=== PATIENT | male | born 1950 | race Caucasian/White ===

== ENCOUNTER 2019-09-01 13:08 | Inpatient (IN) ==
[2019-09-01] MEDS ORDERED: SODIUM CHLORIDE 0.9% 500 ML IV SCH (14:15)
[2019-09-01 14:26] LABS: Basophils # (auto) 0.05 K/uL (0-0.2); Basophils % (auto) 0.7 %; Eosinophils % (auto) 4.3 %; Hematocrit (blood only) 40.1 % (42-52); Hemoglobin 13.2 g/dL (14.0-18.0); Immature Granulocytes # (auto) 0.02 K/uL (0.00-0.02); Immature Granulocytes % (auto) 0.3 %; Lymphocytes # (auto) 1.62 K/uL (1.2-3.4); Mean Corpuscular Hemoglobin 30.6 pg (25-34); Mean Corpuscular Hgb Conc 32.9 g/dL (32-36); Mean Corpuscular Volume 92.8 fL (80-100); Mean Platelet Volume 9.7 fL (7.4-10.4); Monocytes # (auto) 0.69 K/uL (0.11-0.59); Monocytes % (auto) 9.8 %; Neutrophils # (auto) 4.35 K/uL (1.4-6.5); Neutrophils % (auto) 61.9 %; Platelet Count 260 K/uL (130-400); RDW Coefficient of Variation 13.5 % (11.5-14.5); RDW Standard Deviation 45.9 fL (36.4-46.3); Red Blood Count 4.32 M/uL (4.7-6.1); White Blood Count 7.03 K/uL (4.8-10.8)
--- NOTE | 2019-09-01 14:28 | Emergency Department Note ---
Impression & Plan Weakness, Pedal edema, Acute deep vein thrombosis (DVT) of right lower extremity ED Provider Note NAME: RAY CHAVES AGE: 68 SEX: M : 1950 ARRIVES VIA: Ambulance INFORMANT: [Patient][nurses, ems] ED PROVIDER(S): [Candido Asif MD] CHIEF COMPLAINT: Lower leg swelling HISTORY OF PRESENT ILLNESS: The patient is a 68-year-old male who was brought by EMS for bilateral pedal edema. The patient had an appointment to see his family doctor for this issue yesterday however, his ride refused to take him as his Torres catheter was leaking. He apparently sat outside for 4 hours before getting back into the house. The patient denies any cough or congestion or shortness of breath. No chest pain. He does have some occasional intermittent abdominal pain but it is very mild in severity. He is moving his bowels. He does not have any urinary complaints, he does wear a chronic Torres. The patient is not sure how long his legs have been swollen. As per the nursing staff, the patient's power of real estate associate attorney wanted him checked today as he has swollen legs. There was also concern that he had been outside in the heat by himself for 4 hours. REVIEW OF SYSTEMS: See HPI for pertinent positives and negatives. A total of ten systems were r eviewed and were otherwise negative. PMHx/PSHx: See Below SOCIAL HISTORY: See Below. PHYSICAL EXAM: GENERAL: Patient is in no acute distress. HEENT: No acute trauma, normocephalic atraumatic, mucous membranes moist, no nasal congestion, no scleral icterus. NECK: No stridor, no adenopathy, no meningismus, trachea is midline. LUNGS: Clear to auscultation bilaterally, no wheeze, no rhonchi, breath sounds equal. HEART: Without murmurs gallops or rubs, regular rate and rhythm. ABDOMEN: Soft, nontender, bowel sounds positive, no hernias, no peritonitis. There is a Torres catheter in place draining yellow urine. EXTREMITIES: No cyanosis, moderate bilateral pedal edema. There are some open wounds on the lower legs below the knees. There is no warmth or surrounding erythema. These appear to be abrasions. NEUROLOGIC: Awake and alert, no acute motor or sensory deficits, no focal weakness. Answers simple questions. No speech slur. SKIN: No rash, no jaundice, no diaphoresis. Groin: There is a Torres in place, no scrotal erythema. DIFFERENTIAL DIAGNOSIS: Infection, dehydration, metabolic abnormality, hypo/hyperglycemia, DVT, cellulitis, UTI, electrolyte disturbance, anemia, hypoxia, cardiac sources, intracerebral event, toxicologic, neurologic, as well as other pathologies. EMERGENCY DEPARTMENT COURSE/PROCEDURES: ECG: Indication was weakness. The ECG shows a normal sinus rhythm with a rate of 71. The QTc is 434. There are no PVCs or ST elevation. LVH is present. Continuous Cardiac Monitoring: An order was placed for continuous cardiac monitoring. The monitor shows a rate of 55 with sinus bradycardia. MEDICAL DECISION MAKING: There is no leukocytosis or concerning anemia. No coagulopathy. No significant electrolyte abnormality or kidney failure. No worrisome liver enzyme elevation. The patient appears to be in a euthyroid state. Urinalysis shows possible infection versus just changes from his chronic Torres catheter. EKG shows a sinus rhythm, no acute ischemia. Cardiac enzyme testing x1 is not consistent with acute cardiac injury. Chest film does not show pneumonia or CHF. KUB does not show obstruction, there was some mild to moderate constipation. Bilateral lower extremity ultrasound shows a right leg DVT and a superficial clot. The left leg did not have any clot. The patient presents with weakness, edema and concern for dehydration. The patient received IV saline for hydration. He is resting comfortably. The patient has been weaker, he has had increasing edema of his legs, he now has a right leg DVT. Given his immobility, given his living situation and care status, I do think a hospital stay is warranted. I did speak to the patient, I spoke with his power of real estate associate attorney. Case management has been involved. The on- call hospitalist was consulted. 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 Beliefs That Will Affect Care: None Current Living Situation: Alone Other Information That Helps Us Care for You: No Feels Safe at Home: Yes Safety Concerns: Feels Safe At This Time Smoking Status: Never smoker Hx Alcohol Use: No Hx Substance Use: No Allergies Allergies Allergy/AdvReac Type Severity Reaction Status Date / Time No Known Allergies Allergy Unverified 09/01/19 13:54 Home Meds Home Medications Medication Instructions Recorded Confirmed amlodipine 2.5 mg PO DAILY 09/01/19 09/01/19 aspirin 81 mg PO DAILY 09/01/19 09/01/19 carbidopa-levodopa 1 tab PO TID 09/01/19 09/01/19 docusate sodium 100 mg PO BID 09/01/19 09/01/19 metformin 500 mg PO DAILY 09/01/19 09/01/19 polyethylene glycol 3350 17 g PO DAILY 09/01/19 09/01/19 tamsulosin 0.4 mg PO DAILY 09/01/19 09/01/19 Results & Data (ED) Vital Signs Vital Signs - 24 hr 09/01/19 13:16 09/01/19 13:18 09/01/19 13:30 Temperature 36.9 C Temperature Source Oral Pulse Rate 78 65 54 L Pulse Rate [Apical] Pulse Rate from SpO2 Sensor 67 66 57 L Respiratory Rate 21 21 19 Respiratory Effort / Characteristics Non-Labored Spontaneous Respiratory Depth Normal Respiratory Pattern Regular Blood Pressure 124/72 114/61 Blood Pressure [Right Arm] Blood Pressure Mean 96 78 Blood Pressure Mean [Right Arm] Pulse Oximetry 97 98 97 Oxygen Delivery Method Room Air Sepsis Recent Fever Within 48 Hours No Sepsis Action Taken by Nursing No Action Required 09/01/19 14:00 09/01/19 14:28 09/01/19 15:54 Temperature Temperature Source Pulse Rate 63 Pulse Rate [Apical] 65 Pulse Rate from SpO2 Sensor 63 Respiratory Rate 16 20 Respiratory Effort / Characteristics Respiratory Depth Respiratory Pattern Blood Pressure Blood Pressure [Right Arm] 144/82 H Blood Pressure Mean Blood Pressure Mean [Right Arm] 102 Pulse Oximetry 97 97 98 Oxygen Delivery Method Room Air Room Air Sepsis Recent Fever Within 48 Hours Sepsis Action Taken by Nursing 09/01/19 16:30 09/01/19 17:00 Temperature Temperature Source Pulse Rate 71 66 Pulse Rate [Apical] Pulse Rate from SpO2 Sensor 71 66 Respiratory Rate 18 20 Respiratory Effort / Characteristics Respiratory Depth Respiratory Pattern Blood Pressure 138/79 137/76 Blood Pressure [Right Arm] Blood Pressure Mean 89 95 Blood Pressure Mean [Right Arm] Pulse Oximetry 97 97 Oxygen Delivery Method Sepsis Recent Fever Within 48 Hours Sepsis Action Taken by [facility] Medications Current Medication List: was personally reviewed by me Laboratory Data Attestation: I reviewed the patient's lab results. Result diagrams: 09/01/19 13:20 09/01/19 13:20 Lab Results 09/01/19 09/01/19 09/01/19 Range/Units 13:20 13:20 13:20 WBC 7.03 (4.8-10.8) K/uL RBC 4.32 L (4.7-6.1) M/uL Hgb 13.2 L (14.0-18.0) g/dL Hct 40.1 L (42-52) % MCV 92.8 (80-100) fL MCH 30.6 (25-34) pg MCHC 32.9 (32-36) g/dL RDW Std Deviation 45.9 (36.4-46.3) fL RDW Coeff of Joni 13.5 (11.5-14.5) % Plt Count 260 (130-400) K/uL MPV 9.7 (7.4-10.4) fL Immature Gran % (Auto) 0.3 % Neut % (Auto) 61.9 % Lymph % (Auto) 23.0 % Burnett % (Auto) 9.8 % Eos % (Auto) 4.3 % Baso % (Auto) 0.7 % Neut # (Auto) 4.35 (1.4-6.5) K/uL Lymph # (Auto) 1.62 (1.2-3.4) K/uL Burnett # (Auto) 0.69 H (0.11-0.59) K/uL Eos # (Auto) 0.30 (0-0.5) K/uL Baso # (Auto) 0.05 (0-0.2) K/uL Immature Gran # (Auto) 0.02 (0.00-0.02) K/uL PT 11.1 (9.0-12.0) Seconds INR 1.1 (0.9-1.1) APTT 26.5 (21.0-31.0) Seconds PTT Ratio 0.9 Sodium 139 (136-145) mmol/L Potassium 4.3 (3.5-5.1) mmol/L Chloride 106 (98-107) mmol/L Carbon Dioxide 27 (21-32) mmol/L Anion Gap 6.0 (3-11) BUN 15 (7-18) mg/dl Creatinine 0.94 (0.6-1.4) mg/dl Est Cr Clr Drug Dosing 77.9 ml/min Est GFR ( Amer) 94.8 Est GFR (Non-Af Amer) 81.8 BUN/Creatinine Ratio 15.6 (10-20) Glucose 137 H (70-99) mg/dl Calcium 8.6 (8.5-10.1) mg/dl Magnesium 2.1 (1.8-2.4) mg/dl Total Bilirubin 0.4 (0.2-1) mg/dl AST 14 L (15-37) U/L ALT 14 (12-78) U/L Alkaline Phosphatase 84 (45-117) U/L Troponin I < 0.015 (0-0.045) ng/ml Total Protein 7.6 (6.4-8.2) gm/dl Albumin 3.3 L (3.4-5.0) gm/dl Globulin 4.3 H (2.5-4.0) gm/dl Albumin/Globulin Ratio 0.8 L (0.9-2) TSH 0.368 (0.300-4.500) uIu/ml Urine Color Urine Appearance (Clear) Urine pH (4.5-7.5) Ur Specific Bradford (1.000-1.030) Urine Protein (Negative) Urine Glucose (UA) (Negative) Urine Ketones (Negative) Urine Blood (Negative) Urine Nitrite (Negative) Urine Bilirubin (Negative) Urine Urobilinogen (Negative) Ur Leukocyte Esterase (Negative) Urine WBC (Auto) (0-5) /hpf Urine RBC (Auto) (0-4) /hpf U Hyaline Cast (Auto) (0-5) /lpf U Epithel Cells (Auto) (0-5) /lpf Urine Bacteria (Auto) (Negative) 09/01/19 Range/Units 15:50 WBC (4.8-10.8) K/uL RBC (4.7-6.1) M/uL Hgb (14.0-18.0) g/dL Hct (42-52) % MCV (80-100) fL MCH (25-34) pg MCHC (32-36) g/dL RDW Std Deviation (36.4-46.3) fL RDW Coeff of Joni (11.5-14.5) % Plt Count (130-400) K/uL MPV (7.4-10.4) fL Immature Gran % (Auto) % Neut % (Auto) % Lymph % (Auto) % Burnett % (Auto) % Eos % (Auto) % Baso % (Auto) % Neut # (Auto) (1.4-6.5) K/uL Lymph # (Auto) (1.2-3.4) K/uL Burnett # (Auto) (0.11-0.59) K/uL Eos # (Auto) (0-0.5) K/uL Baso # (Auto) (0-0.2) K/uL Immature Gran # (Auto) (0.00-0.02) K/uL PT (9.0-12.0) Seconds INR (0.9-1.1) APTT (21.0-31.0) Seconds PTT Ratio Sodium (136-145) mmol/L Potassium (3.5-5.1) mmol/L Chloride (98-107) mmol/L Carbon Dioxide (21-32) mmol/L Anion Gap (3-11) BUN (7-18) mg/dl Creatinine (0.6-1.4) mg/dl Est Cr Clr Drug Dosing ml/min Est GFR ( Amer) Est GFR (Non-Af Amer) BUN/Creatinine Ratio (10-20) Glucose (70-99) mg/dl Calcium (8.5-10.1) mg/dl Magnesium (1.8-2.4) mg/dl Total Bilirubin (0.2-1) mg/dl AST (15-37) U/L ALT (12-78) U/L Alkaline Phosphatase (45-117) U/L Troponin I (0-0.045) ng/ml Total Protein (6.4-8.2) gm/dl Albumin (3.4-5.0) gm/dl Globulin (2.5-4.0) gm/dl Albumin/Globulin Ratio (0.9-2) TSH (0.300-4.500) uIu/ml Urine Color Yellow Urine Appearance Cloudy A (Clear) Urine pH 7.5 (4.5-7.5) Ur Specific Bradford 1.011 (1.000-1.030) Urine Protein Negative (Negative) Urine Glucose (UA) Negative (Negative) Urine Ketones Negative (Negative) Urine Blood Negative (Negative) Urine Nitrite Negative (Negative) Urine Bilirubin Negative (Negative) Urine Urobilinogen Negative (Negative) Ur Leukocyte Esterase 3+ H (Negative) Urine WBC (Auto) >30 H (0-5) /hpf Urine RBC (Auto) 0-4 (0-4) /hpf U Hyaline Cast (Auto) 5-10 H (0-5) /lpf U Epithel Cells (Auto) 5-10 H (0-5) /lpf Urine Bacteria (Auto) 3+ H (Negative) Administered Medications Discontinued Medications Sodium Chloride (Nss) 500 mls @ 999 mls/hr IV .Q31M [facility] Stop: 09/01/19 14:45 Last Infusion: 09/01/19 14:52 Dose: 0 mls/hr Documented by: [id number] Admin: 09/01/19 14:21 Dose: 999 mls/hr Documented by: [id number] Imaging Data Radiologist's Impression: XR chest 1V portable, XR KUB/Abdomen 1 view HISTORY: 68 years-old Male weakness acute weakness COMPARISON: None TECHNIQUE: AP view of the chest with KUB radiograph FINDINGS: CHEST: Enlargement of the cardiac silhouette. Mild right hemidiaphragmatic elevation. No pneumothorax, pleural effusion, airspace consolidation or overt pulmonary edema. Bones of the chest appear grossly intact. Degenerative changes of the shoulders and spine. KUB: Bowel gas pattern is nonobstructive. Mild to moderate fecal retention. No urolith identified. No pneumatosis or pneumoperitoneum. Lumbar levoscoliosis with multilevel degenerative changes. IMPRESSION: 1. No acute processes of the chest. 2. Nonobstructive bowel gas pattern. 3. Mild to moderate fecal retention. ADDENDUM All findings involved the right leg. The left leg is normal. Electronically signed by: Oswaldo Villarreal M.D. 09/01/2019 4:08 PM ADDENDUM END US venous doppler LE BI HISTORY: Pain. Edema. swollen, poss dvt COMPARISON STUDY: None. FINDINGS: Combination of acute deep venous as well as superficial thrombophlebitis. There is evidence for acute deep venous thrombosis of the peroneal veins of the right leg. There is also thrombus within the greater greater saphenous vein extending from the thigh at its proximal to distal aspect. This extends to 2.5 cm from the common femoral vein. IMPRESSION: 1. Combination of acute superficial as well as deep venous thrombosis of the right leg.. 2. Deep venous thrombosis involves the peroneal veins, with the superficial thrombophlebitis involving the greater saphenous vein. Blood Pressure Blood Pressure Findings: Elevated blood pressure Blood Pressure Disposition: further management by hospitalist Discharge Plan Visit Data *Final* Discharge Date/Time: 09/01/19 17:53 Chief Complaint: Swelling/Edema to Extremity ED Provider: Candido Asif Discharge Problem: Weakness, Pedal edema, Acute deep vein thrombosis (DVT) of right lower ex tremity Patient Disposition: Admitted As Inpatient Condition: Good Discharge Instructions Interventions: ED Discharge Assessment Last Done: 09/01/19 17:53 Discharge Problem: Acute deep vein thrombosis (DVT) of right lower extremity Qualifiers: Affected thrombotic vein of extremity: unspecified vein of extremity Qualified Code(s): I82.401 - Acute embolism and thrombosis of unspecified deep veins of right lower extremity
[2019-09-01 14:35] LABS: Alanine Aminotransferase 14 U/L (12-78); Albumin Level 3.3 gm/dl (3.4-5.0); Aspartate Aminotransferase 14 U/L (15-37); BUN Creatinine Ratio 15.6 (10-20); Blood Urea Nitrogen 15 mg/dl (7-18); Calcium 8.6 mg/dl (8.5-10.1); Carbon Dioxide 27 mmol/L (21-32); Chloride 106 mmol/L (98-107); Creatinine Clr Calc Pharmacy 77.9 ml/min; Est GFR (African American) 94.8; Est GFR (Non-African American) 81.8; Glucose 137 mg/dl (70-99); Magnesium 2.1 mg/dl (1.8-2.4); Potassium 4.3 mmol/L (3.5-5.1); Sodium 139 mmol/L (136-145)
--- NOTE | 2019-09-01 14:45 | XRay Report ---
XR chest 1V portable, XR KUB/Abdomen 1 view HISTORY: 68 years-old Male weakness acute weakness COMPARISON: None TECHNIQUE: AP view of the chest with KUB radiograph FINDINGS: CHEST: Enlargement of the cardiac silhouette. Mild right hemidiaphragmatic elevation. No pneumothorax, pleur al effusion, airspace consolidation or overt pulmonary edema. Bones of the chest appear grossly intac t. Degenerative changes of the shoulders and spine. KUB: Bowel gas pattern is nonobstructive. Mild to moderate fecal retention. No urolith identified. No pneu matosis or pneumoperitoneum. Lumbar levoscoliosis with multilevel degenerative changes. IMPRESSION: 1. No acute processes of the chest. 2. Nonobstructive bowel gas pattern. 3. Mild to moderate fecal retention. ACT 112: Negative or not required by law. The above report was generated using voice recognition software. It may contain grammatical, syntax o r spelling errors. Electronically signed by: Abdulkadir Martin M.D. 09/01/2019 2:44 PM
[2019-09-01 15:03] LABS: Albumin Globulin Ratio 0.8 (0.9-2); Alkaline Phosphatase 84 U/L (45-117); Bilirubin,Total 0.4 mg/dl (0.2-1); Globulin 4.3 gm/dl (2.5-4.0); Thyroid Stimulating Hormone 0.368 uIu/ml (0.300-4.500); Total Protein 7.6 gm/dl (6.4-8.2); Troponin I < 0.015 ng/ml (0-0.045)
--- NOTE | 2019-09-01 15:56 | Ultrasound Report ---
US venous doppler LE BI HISTORY: Pain. Edema. swollen, poss dvt COMPARISON STUDY: None. FINDINGS: Combination of acute deep venous as well as superficial thrombophlebitis. There is evidence for acute deep venous thrombosis of the peroneal veins of the right leg. There is a lso thrombus within the greater greater saphenous vein extending from the thigh at its proximal to di stal aspect. This extends to 2.5 cm from the common femoral vein. IMPRESSION: 1. Combination of acute superficial as well as deep venous thrombosis of the right leg.. 2. Deep venous thrombosis involves the peroneal veins, with the superficial thrombophlebitis involvin g the greater saphenous vein. ACT 112: Negative or not required by law. The above report was generated using voice recognition software. It may contain grammatical, syntax or spelling errors. Electronically signed by: Oswaldo Villarreal M.D. 09/01/2019 3:55 PM
[2019-09-01 16:12] LABS: Appearance Urine Cloudy (Clear); Bilirubin Urine Negative (Negative); Blood Urine Negative (Negative); Color Urine Yellow; Glucose Urine UA Negative (Negative); Ketones Urine Negative (Negative); Leukocyte Esterase Urine 3+ (Negative); Nitrite Urine Negative (Negative); Protein Urine Negative (Negative); Specific Gravity Urine 1.011 (1.000-1.030); Urobilinogen Urine Negative (Negative); pH Urine 7.5 (4.5-7.5)
[2019-09-01 16:34] LABS: Bacteria Urine Automated 3+ (Negative); RBC Urine Automated 0-4 /hpf (0-4); WBC Urine Automated >30 /hpf (0-5)
[2019-09-01 17:44] LABS: INR 1.1 (0.9-1.1); Partial Thromboplastin Ratio 0.9; Partial Thromboplastin Time 26.5 Seconds (21.0-31.0); Prothrombin Time 11.1 Seconds (9.0-12.0)
--- NOTE | 2019-09-01 18:24 | History & Physical Report ---
Date of Service September 01, 2019 Assessment & Plan (1) Deep vein thrombosis (DVT) of right lower extremity: (2) Lower extremity edema: Pt is 68 y/o M with PMH HTN, Parkinson's, DM II, BPH, indwelling Sanders cath presented to ER with c/o bilateral leg edema x several days. Denies any known falls or trauma. Is sedentary. Denies fever/chills In ER pt afebrile, P: 63, R: 20, BP: 114/61, 96% on RA. No leukocytosis. BLE Venous Doppler: Right leg: Deep venous thrombosis involves the peroneal vein s, with the superficial thrombophlebitis involving the greater saphenous vein. -In ER given 500ml NSS -No reported SOB, CP, no hypoxia noted, no tachycardia -Start Eliquis. (Did call pt's pharmacy -[facility] pharmacy and Eliquis starter pack would be around $8 and it would cost around $8 a month for Eliquis 5mg BID) -Monitor wounds to BLE, will hold on antibiotics at this time -CBC, BMP in am (3) Ambulatory dysfunction: Reported h/o Parkinson's and chronic difficulty ambulating. Denies any falls past 2 months. Using roller walker. Was not able to get himself back into his house yesterday -PT/OT eval -Fall precautions -Case management for assistance if pt requires placement (4) HTN (hypertension): Stable -Continue amlodipine (5) Diabetes mellitus, type II: -A1c in am -Hold metformin -Novolog sliding scale per protocol (6) Indwelling Sanders catheter present: (7) BPH (benign prostatic hyperplasia): H/O urinary retention with Sanders cath x couple of months Follows with [facility] in [facility] office No reported urinary symptoms. UA: 3+leuk est, >30 WBC, 5-10 epithelial, 3+bacteria -Pending urine culture -Continue tamsulosin (8) Parkinson disease: Follows with [facility] in [place] -Continue carbidopa/levodopa DVT Prophylaxis -On Eliquis for DVT that was present upon admission Full Code as per discussion with pt Follows with Dr Adamson for routine care Pt was seen and care coordinated with Dr Cueto. See addendum Admission and Anticipated Discharge Date Admission Date: September 01, 2019 History of Present Illness Chief Complaint: Lower leg swelling Primary Care Provider: Dr Adamson Pt is 68 y/o M with PMH HTN, Parkinson's, DM II, BPH, indwelling Sanders cath presented to ER with c/o bilateral leg edema x several days. Pt states noticed the swelling several days ago. He reports typically has some swelling to BLE that improves with elevating legs however that didn't seem to help much re cently. He reports also noticed some wounds to lower legs a couple of days ago. Unsure if any drainage. Unsure how wounds developed or if he had any injury. Pt reports bilateral lower legs "always red" and is unsure if they have worsened. Denies extremity pain, SOB, CP. Pt states h/o hospitalization at [facility] a couple of months ago for frequent falls and during that admission had urinary retention and has had Sanders cath since. Pt unsure when was last changed. He reports now uses a rolling walker and denies any fall recently. He does admits sits for most of the day. He states yesterday was to have dr appointment but his catheter bag was leaking and [employer] van would not take him and he sat outside for 4 hours until someone helped him back in the house. He states has someone coming in to the house three times a week and he thinks they are home health nurses. Pt reports his niece Nisha Lozada helps with his meals and helps with his medical decisions (He is unsure of her phone number). Reports chronic constipation, last BM this morning formed stool but admits needed to strain. Reports some discomfort to left side intermittently. Denies fever/chills, diaphoresis, N/V/D, MISHRA, dizziness, syncope, vision changes, neck pain, orthopnea, palpitations, cough, sore throat, choking, otalgia, rhinorrhea, other abdominal pain, paresthesias, increasing extremity weakness, other rashes, hematuria, dysuria, malfunctioning of sanders cath. Denies h/o DVT/PE or FH of clotting disorder Allergies Allergy/AdvReac Type Severity Reaction Status Date / Time No Known Allergies Allergy Unverified 09/01/19 13:54 Home Medications Home Medications Medication Instructions Recorded Confirmed Type amlodipine 2.5 mg PO DAILY 09/01/19 09/01/19 History aspirin 81 mg PO DAILY 09/01/19 09/01/19 History carbidopa-levodopa 1 tab PO TID 09/01/19 09/01/19 History docusate sodium 100 mg PO BID 09/01/19 09/01/19 History metformin 500 mg PO DAILY 09/01/19 09/01/19 History polyethylene glycol 3350 17 g PO DAILY 09/01/19 09/01/19 History tamsulosin 0.4 mg PO DAILY 09/01/19 09/01/19 History Past Med/Surg History Medical History BPH (benign prostatic hyperplasia) HTN (hypertension) Indwelling Sanders catheter present Parkinson disease Surgical History History of prostate surgery Family History Other Cancer Diabetes Social History Preferred Language: Sami Communication Ability: Effective Components Engineer Required: No Beliefs That Will Affect Care: None Current Living Situation: Alone Other Information That Helps Us Care for You: No Feels Safe at Home: Yes Safety Concerns: Feels Safe At This Time Smoking Status: Never smoker Hx Alcohol Use: No Hx Substance Use: No Review of Systems Review of Systems: All systems reviewed & are unremarkable except as noted in HPI & below Physical Exam Physical Exam: General: no distress, overweight Head: normocephalic, atraumatic Eyes: PERRL, EOM's intact, conjunctiva non-injected, anicteric ENT: normal inspection external ears, nose, mucous membranes moist Neck: supple, trachea midline Lungs: clear, no respiratory distress, no wheezing/rhonchi/rales CV: RRR, no murmur Abd: normal BS, soft, non-tender Ext: no cyanosis, bilateral lower legs with edema and mild erythema, bilateral legs with abrasions and scabs without discharge, no significant tenderness or warmth to palpation, limited ROM bilateral lower extremities, sensation to light touch intact Neuro: A&O x 3, +tremor hands, no other focal deficits noted, somewhat flat affect Skin: warm, dry, see extremities as above Results & Data Results & Data ([facility]) Vital Signs (Past 12 Hours) Vital Signs Temp Pulse Pulse Resp BP BP Pulse Ox 09/01/19 17:30 58 L 18 99/63 L 92 09/01/19 17:00 66 20 137/76 97 09/01/19 16:30 71 18 138/79 97 09/01/19 15:54 65 20 144/82 H 98 09/01/19 14:28 97 09/01/19 14:00 63 16 97 09/01/19 13:30 54 L 19 97 09/01/19 13:18 36.9 C 65 21 114/61 98 09/01/19 13:16 78 21 124/72 97 Laboratory Results Short CBC 09/01/19 Range/Units 13:20 WBC 7.03 (4.8-10.8) K/uL Hgb 13.2 L (14.0-18.0) g/dL Hct 40.1 L (42-52) % Plt Count 260 (130-400) K/uL BMP 09/01/19 13:20 Sodium 139 Potassium 4.3 Chloride 106 Carbon Dioxide 27 BUN 15 Creatinine 0.94 Glucose 137 H Calcium 8.6 Cardiac Enzymes 09/01/19 Range/Units 13:20 Troponin I < 0.015 (0-0.045) ng/ml Liver Function 09/01/19 Range/Units 13:20 Total Bilirubin 0.4 (0.2-1) mg/dl AST 14 L (15-37) U/L ALT 14 (12-78) U/L Alkaline Phosphatase 84 (45-117) U/L Albumin 3.3 L (3.4-5.0) gm/dl Urine 09/01/19 Range/Units 15:50 Urine Color Yellow Urine Appearance Cloudy A (Clear) Urine pH 7.5 (4.5-7.5) Ur Specific Baker 1.011 (1.000-1.030) Urine Protein Negative (Negative) Urine Glucose (UA) Negative (Negative) Diagnostic Findings BLE VENOUS DOPPLER: IMPRESSION: 1. Combination of acute superficial as well as deep venous thrombosis of the right leg.. 2. Deep venous thrombosis involves the peroneal veins, with the superficial thrombophlebitis involving the greater saphenous vein. CXR: IMPRESSION: 1. No acute processes of the chest. 2. Nonobstructive bowel gas pattern. 3. Mild to moderate fecal retention. KUB XRAY: IMPRESSION: 1. No acute processes of the chest. 2. Nonobstructive bowel gas pattern. 3. Mild to moderate fecal retention. Code Status & VTE Plan VTE Prophylaxis Plan VTE Prophylaxis will be ordered: Yes Supervising Physician Co-Signing Physician Notes I have seen and examined the patient and have discussed the case with the provider above. I agree with the assessment and plan as stated. 68 yo M with Parkinson's disease that appears progressed presented to the hospital with swollen legs with waxing /waning wounds. There is no clear cellulitis present per se, however, there are some pinkish appearing areas on his feet. Wounds are pretibial and appear vesicular on an erythematous base. Unlikely to be shingles as they cross dermatomes and are not painful; more likely related to poor circulation from immobility and swelling issues in setting of DVT. He is clearly depressed and admits to be so, stating "I feel that I am at rock bottom." He states he is struggling to keep up with conversations, and feels his memory slipping. He also has a clear resting tremor and reports falling at home recently. It is very concerning that [employer] left him outside his home yesterday for four hours, and couldn't help him back inside. But it is equally concerning that he couldn't get inside on his own volition. This means he wouldn't be able to egress the building in an emergency either, which is clearly unsafe. PT/OT consults have been ordered for evaluation in the morning. Additionally, the patient may have a neurologist, but this isn't certain. Records have been requested to figure this out, but it may be an option to have someone from Neurology evaluate him here to ensure medical treatment is optimized. Regarding his indwelling Sanders catheter, it bothers him. He reports stinging on occasion, but cannot give a clearer history outside of that. With his UA results from today, will start Rocephin empirically, which may improve generalized weakness if infection is present, and may improve the skin on his lower extremities. Physical otherwise reveals clear lungs, a normal cardiac exam, a benign abdomen without pelvic or abdominal tenderness to palpation. There is bilateral lower leg swelling with trace edema and wounds in bilateral pretibial areas and on anterior distal lower legs. Again no overt signs of infection are present. He has approx 3/5 strength throughout and a resting tremor. He doesn't have great fine motor control. He appears to be oriented and answers questions correctly. EOMI, PERRL, no other gross focal neurologic deficits are present. Cont plan starting Eliquis, PT/OT and case management assessment. There needs to be a clear multidisciplinary conversation including physician, patient, niece of patient (POA) and case assembler surrounding goals of care and safety in the home based on needs. Start Rocephin empirically for possible CAUTI and remove Sanders for TOV (he is eager to have this removed). Records requested from [facility]. Monitor for worsening depression and strongly suggest outpatient followup with PCP for this. Of note, he denies SI at this time. Would also work with his outpatient housing case manager to ensure a different ride system were available for him. May also consider a Life Alert system as something he could wear on his person and call for help should he need it. Pt states he has an appointment with the [facility] of [facility] next month regarding more help in the home. Rom, DO
[2019-09-01] MEDS ORDERED: GLUCAGON FOR INJ 1 MG VIAL SQ PRN (18:47)
[2019-09-01] MEDS ORDERED: DEXTROSE 50% 50 ML SYRINGE IV PRN (18:47)
[2019-09-01] MEDS ORDERED: GLUCOSE 10 TABS/TUBE PO PRN (18:47)
[2019-09-01] MEDS ORDERED: CARBOHYDRATES FOR HYPOGLYCEMIA PO PRN (18:47)
[2019-09-01] MEDS ORDERED: GLUCOSE 40% GEL 15 GM TUBE PO PRN (18:47)
[2019-09-01] MEDS: INSULIN ASPART 100 UNITS/ML 3 ML PEN SC SCH (20:55)
[2019-09-01] MEDS: APIXABAN 5 MG TABLET PO SCH (20:55)
[2019-09-01] MEDS: CARBIDOPA/LEVODOPA 25/100MG TAB PO SCH (20:56)
[2019-09-01] MEDS: DOCUSATE SODIUM 100 MG CAP PO SCH (20:56)
[2019-09-01] MEDS: cefTRIAXone SODIUM 2,000 MG in DEXTROSE 5% 50 ML IV SCH (22:49)
[2019-09-02] MEDS: ACETAMINOPHEN 325 MG TAB PO PRN ×2 (02:49→08:36)
[2019-09-02 06:51] LABS: Hematocrit (blood only) 39.6 % (42-52); Hemoglobin 13.3 g/dL (14.0-18.0); Mean Corpuscular Hemoglobin 30.7 pg (25-34); Mean Corpuscular Hgb Conc 33.6 g/dL (32-36); Mean Corpuscular Volume 91.5 fL (80-100); Mean Platelet Volume 9.4 fL (7.4-10.4); Platelet Count 236 K/uL (130-400); RDW Coefficient of Variation 13.3 % (11.5-14.5); RDW Standard Deviation 44.4 fL (36.4-46.3); Red Blood Count 4.33 M/uL (4.7-6.1); White Blood Count 8.42 K/uL (4.8-10.8)
--- NOTE | 2019-09-02 06:55 | Electrocardiogram Report ---
Test Reason : Blood Pressure : / mmHG Vent. Rate : 071 BPM Atrial Rate : 071 BPM P-R Int : 200 ms QRS Dur : 112 ms QT Int : 400 ms P-R-T Axes : 060 -49 005 degrees QTc Int : 434 ms Normal sinus rhythm Left anterior fascicular block Minimal voltage criteria for LVH, may be normal variant Abnormal ECG No previous ECGs available Confirmed by Nathan Roman ([id number]) on 09/02/2019 6:55:27 AM Referred By: Confirmed By:Nathan Roman
[2019-09-02 07:18] LABS: BUN Creatinine Ratio 13.4 (10-20); Calcium 8.7 mg/dl (8.5-10.1); Creatinine Clr Calc Pharmacy 79.4 ml/min; Est GFR (African American) 98.6; Est GFR (Non-African American) 85.1
[2019-09-02 07:36] LABS: Estimated Average Glucose 169 mg/dl; Hemoglobin A1C 7.5 % (4.5-5.6)
[2019-09-02] MEDS: CARBIDOPA/LEVODOPA 25/100MG TAB PO SCH ×3 (08:25→21:05)
[2019-09-02] MEDS: ASPIRIN 81 MG ECTAB PO SCH (08:26)
[2019-09-02] MEDS: APIXABAN 5 MG TABLET PO SCH ×2 (08:26→21:04)
[2019-09-02] MEDS: DOCUSATE SODIUM 100 MG CAP PO SCH ×2 (08:26→21:05)
[2019-09-02] MEDS: POLYETHYLENE (MIRALAX) 17 GM PACK PO SCH (08:27)
[2019-09-02] MEDS: TAMSULOSIN HCL 0.4 MG CAP PO SCH (08:27)
[2019-09-02] MEDS: AMLODIPINE BESYLATE 5 MG TAB PO SCH (08:27)
[2019-09-02] MEDS: INSULIN ASPART 100 UNITS/ML 3 ML PEN SC SCH ×4 (08:29→21:05)
--- NOTE | 2019-09-02 17:27 | Hospitalist Progress Note ---
Date of Service September 02, 2019 Assessment & Plan (1) Deep vein thrombosis (DVT) of right lower extremity: (2) Lower extremity edema: Pt is 68 y/o M with PMH HTN, Parkinson's, DM II, BPH, indwelling Sanders cath presented to ER with c/o bilateral leg edema x several days. Denies any known falls or trauma. Is sedentary. Denies fever/chills BLE Venous Doppler: Right leg: Deep venous thrombosis involves the peroneal veins, with the superficial thrombophlebitis involving the greater saphenous vein. - -Started on Eliquis. (pt's pharmacy -[facility] pharmacy contacted - Eliquis starter pack would be around $8 and it would cost around $8 a month for Eliquis 5mg BID) - (3) Ambulatory dysfunction: Reported h/o Parkinson's and chronic difficulty ambulating. Denies any falls past 2 months. Using roller walker. -PT/OT eval -Fall precautions -Case management for assistance if pt requires placement (4) HTN (hypertension): Stable -Continue amlodipine (5) Diabetes mellitus, type II: -A1c in am -Hold metformin -Novolog sliding scale per protocol (6) Indwelling Sanders catheter present: Complicated UTI due to indwelling Sanders catheter: urine culture gram negative bacilli on Rocephin (7) BPH (benign prostatic hyperplasia): H/O urinary retention with Sanders cath x couple of months Follows with [facility] in [facility] office sanders was removed as voiding trial pt was able to void small amount in urinal /post void bladder scan reveals > 800 ml residue urine Sanders reinserted pt will need continued follow up with urology in clinic No reported urinary symptoms. UA: 3+leuk est, >30 WBC, 5-10 epithelial, 3+bacteria Urine culture as above , on IV rocephin -Continue tamsulosin (8) Parkinson disease: Follows with [facility] in [place] -Continue carbidopa/levodopa DVT Prophylaxis -On Eliquis for DVT that was present upon admission Full Code as per discussion with pt Follows with Dr Adamson for routine care Admission and Anticipated Discharge Date Admission Date: September 01, 2019 Subjective pt sitting up on chair worried about blood clot in leg no complain of sob or chest pain Review of Systems Review of Systems: All systems reviewed & are unremarkable except as noted in HPI & below Physical Exam Constitutional: WD/WN, vitals as above Eyes: + anicteric sclerae ENMT: external ear and nose normal, oropharynx normal Neck: trachea midline, no thyromegaly Respiratory: normal respiratory effort, lungs clear to auscultation Cardiovascular: Rate/Rhythm: regular rate and regular rhythm Gastrointestinal (Abdomen): normal bowel sounds, soft, nontender, no hepatosplenomegaly Musculoskeletal: no cyanosis or clubbing, extremities motor strength 5/5 Neurologic: PERRL, EOMI, accommodation nl, no face palsy, no dysarthria Psychiatric: A+Ox3, euthymic affect Results & Data Results & Data ([facility]) Vital Signs (Past 12 Hours) Vital Signs Temp Pulse Pulse Resp BP BP Pulse Ox 09/02/19 15:54 36.8 C 66 18 100/65 96 09/02/19 11:40 37.1 C 68 18 97/60 L 93 09/02/19 07:13 36.3 C L 71 18 135/73 93 09/02/19 07:00 71
[2019-09-02] MEDS ORDERED: MICONAZOLE NITRATE POWDER 43 GM EXT PRN (20:06)
[2019-09-02] MEDS: cefTRIAXone SODIUM 2,000 MG in DEXTROSE 5% 50 ML IV SCH (21:04)
[2019-09-03] MEDS: CARBIDOPA/LEVODOPA 25/100MG TAB PO SCH ×2 (08:34→13:38)
[2019-09-03] MEDS: ASPIRIN 81 MG ECTAB PO SCH (08:35)
[2019-09-03] MEDS: DOCUSATE SODIUM 100 MG CAP PO SCH (08:35)
[2019-09-03] MEDS: AMLODIPINE BESYLATE 5 MG TAB PO SCH (08:35)
[2019-09-03] MEDS: TAMSULOSIN HCL 0.4 MG CAP PO SCH (08:36)
[2019-09-03] MEDS: APIXABAN 5 MG TABLET PO SCH (08:37)
[2019-09-03] MEDS: POLYETHYLENE (MIRALAX) 17 GM PACK PO SCH (08:37)
[2019-09-03] MEDS: INSULIN ASPART 100 UNITS/ML 3 ML PEN SC SCH ×3 (08:38→17:19)
--- NOTE | 2019-09-03 13:05 | Hospitalist Progress Note ---
Date of Service September 03, 2019 Assessment & Plan (1) Deep vein thrombosis (DVT) of right lower extremity: (2) Lower extremity edema: Pt is 68 y/o M with PMH HTN, Parkinson's, DM II, BPH, indwelling Torres cath presented to ER with c/o bilateral leg edema x several days. Denies any known falls or trauma. Is sedentary. Denies fever/chills BLE Venous Doppler: Right leg: Deep venous thrombosis involves the peroneal veins, with the superficial thrombophlebitis involving the greater saphenous vein. - -Started on Eliquis. (pt's pharmacy -[facility] contacted - Eliquis starter pack would be around $8 and it would cost around $8 a month for Eliquis 5mg BID) -Lower extremity DVT possibly unprovoked Patient may need long-term anticoagulation, Will need detailed hypercoagulable work-up, which should be done at outpatient, for continuation of care (3) Ambulatory dysfunction: Reported h/o Parkinson's and chronic difficulty ambulating. Denies any falls past 2 months. Using roller walker. -PT/OT eval -Referral made to rehab (4) HTN (hypertension): Stable -Continue amlodipine (5) Diabetes mellitus, type II: -A1c in am -Hold metformin-will be resumed on discharge -Novolog sliding scale per protocol (6) Indwelling Torres catheter present: Complicated UTI due to indwelling Torres catheter: urine culture gram negative bacilli on Rocephin (7) BPH (benign prostatic hyperplasia): H/O urinary retention with Torres cath x couple of months Follows with [facility] in [facility] office Patient failed voiding trial, more than 1 L residual urine noted in bladder after removal of Torres Torres catheter reinserted, patient will need continued follow-up with his urology at [place] office -Continue tamsulosin (8) Parkinson disease: Follows with [facility] in [place] -Continue carbidopa/levodopa DVT Prophylaxis -On Eliquis for DVT that was present upon admission Full Code as per discussion with pt Follows with Dr Adamson for routine care Disposition: Referral made to rehab Patient can be transferred to rehab when bed available Admission and Anticipated Discharge Date Admission Date: September 01, 2019 Subjective Patient sitting up on chair, states right lower extremity pain has improved, No fever or chills Torres draining clear yellow urine Review of Systems Review of Systems: All systems reviewed & are unremarkable except as noted in HPI & below Physical Exam Constitutional: WD/WN, vitals as above Eyes: + anicteric sclerae ENMT: external ear and nose normal, oropharynx normal Neck: trachea midline, no thyromegaly Respiratory: normal respiratory effort, lungs clear to auscultation Cardiovascular: Rate/Rhythm: regular rate and regular rhythm Gastrointestinal (Abdomen): normal bowel sounds, soft, nontender, no hepatosplenomegaly Musculoskeletal: no cyanosis or clubbing, extremities motor strength 5/5 Skin: Multiple wounds on both lower leg, dressing present Neurologic: PERRL, EOMI, accommodation nl, no face palsy, no dysarthria Psychiatric: A+Ox3, euthymic affect Results & Data Results & Data ([facility]) Vital Signs (Past 12 Hours) Vital Signs Temp Pulse Pulse Resp BP Pulse Ox 09/03/19 11:22 37.0 C 79 18 105/67 96 09/03/19 07:09 36.8 C 72 18 133/73 97 09/03/19 07:00 52 L 09/03/19 04:00 36.8 C 66 18 115/75 97
[2019-09-03] MEDS ORDERED: CIPROFLOXACIN 500 MG TAB PO SCH (13:30)
--- NOTE | 2019-09-03 14:31 | Discharge Summary ---
Date of Service September 03, 2019 Admission HPI Per Admitting Provider Pt is 68 y/o M with PMH HTN, Parkinson's, DM II, BPH, indwelling Sanders cath presented to ER with c/o bilateral leg edema x several days. Pt states noticed the swelling several days ago. He reports typically has some swelling to BLE that improves with elevating legs however that didn't seem to help much recently. He reports also noticed some wounds to lower legs a couple of days ago. Unsure if any drainage. Unsure how wounds developed or if he had any injury. Pt reports bilateral lower legs "always red" and is unsure if they have worsened. Denies extremity pain, SOB, CP. Pt states h/o hospitalization at [facility] a couple of months ago for frequent falls and during that admission had urinary retention and has had Sanders cath since. Pt unsure when was last changed. He reports now uses a rolling walker and denies any fall recently. He does admits sits for most of the day. He states yesterday was to have dr appointment but his catheter bag was leaking and [employer] van would not take him and he sat outside for 4 hours until someone helped him back in the house. He states has someone coming in to the house three times a week and he thinks they are home health nurses. Pt reports his niece Nisha Lozada helps with his meals and helps with his medical decisions (He is unsure of her phone number). Reports chronic constipation, last BM this morning formed stool but admits needed to strain. Reports some discomfort to left side intermittently. Denies fever/chills, diaphoresis, N/V/D, MISHRA, dizziness, syncope, vision changes, neck pain, orthopnea, palpitations, cough, sore throat, choking, otalgia, rhinorrhea, other abdominal pain, paresthesias, increasing extremity weakness, other rashes, hematuria, dysuria, malfunctioning of sanders cath. Denies h/o DVT/PE or FH of clotting disorder Principal Diagnosis Right lower extremity acute DVT, chronic urinary retention due to BPH- indwelling Sanders catheter, complicated UTI Parkinson's disease hypertension Type 2 diabetes Discharge Exam Constitutional WD/WN, vitals as above Eyes + anicteric sclerae ENMT external ear and nose normal, oropharynx normal Neck trachea midline, no thyromegaly Respiratory normal respiratory effort, lungs clear to auscultation Cardiovascular Rate/Rhythm: regular rate and regular rhythm Gastrointestinal (Abdomen) normal bowel sounds, soft, nontender, no hepatosplenomegaly Musculoskeletal no cyanosis or clubbing, extremities motor strength 5/5 Neurologic PERRL, EOMI, accommodation nl, no face palsy, no dysarthria Psychiatric A+Ox3, euthymic affect Discharge Data Allergies Allergy/AdvReac Type Severity Reaction Status Date / Time No Known Allergies Allergy Unverified 09/01/19 13:54 Consultations 09/01/19 17:12 ED Decision to Admit Stat 09/01/19 18:24 Consult Case Management - Discharge Planning Routine Ordered Studies 09/01/19 14:13 US venous doppler [facility] Hospital Course (1) Deep vein thrombosis (DVT) of right lower extremity: (2) Lower extremity edema: Pt is 68 y/o M with PMH HTN, Parkinson's, DM II, BPH, indwelling Sanders cath presented to ER with c/o bilateral leg edema x several days. Denies any known falls or trauma. Is sedentary. Denies fever/chills BLE Venous Doppler: Right leg: Deep venous thrombosis involves the peroneal veins, with the superficial thrombophlebitis involving the greater saphenous vein. - -Started on Eliquis. (pt's pharmacy -[facility] pharmacy contacted - Eliquis starter pack would be around $8 and it would cost around $8 a month for Eliquis 5mg BID) Patient is discharged to [facility]/acute rehab Eliquis 10 mg twice daily for 5 more days(received 2 days treatment at [facility]) Then continued dose 5 mg twice daily -Lower extremity DVT possibly unprovoked Patient may need long-term anticoagulation, Will need detailed hypercoagulable work-up, which should be done at outpatient, for continuation of care (3) Ambulatory dysfunction: Reported h/o Parkinson's and chronic difficulty ambulating. Denies any falls past 2 months. Using roller walker. -PT/OT eval -Referral made to rehab/accepted at [facility] (4) HTN (hypertension): Stable -Continue amlodipine (5) Diabetes mellitus, type II: -A1c in am -Hold metformin-will be resumed on discharge -Novolog sliding scale per protocol (6) Indwelling Sanders catheter present: Complicated UTI due to indwelling Sanders catheter: urine culture gram negative bacilli /Morganella morganii Antibiotic changed to p.o. ciprofloxacin, continue total 7 days of treatment (7) BPH (benign prostatic hyperplasia): H/O urinary retention with Sanders cath x couple of months Follows with [facility] in [facility] office Patient failed voiding trial, more than 1 L residual urine noted in bladder after removal of Sanders Sanders catheter reinserted, patient will need continued follow-up with his urology at [place] office -Continue tamsulosin (8) Parkinson disease: Follows with [facility] in [place] -Continue carbidopa/levodopa DVT Prophylaxis -On Eliquis for DVT that was present upon admission Full Code as per discussion with pt Follows with Dr Adamson for routine care Disposition: Referral made to rehab Stable to be transferred to [facility] Total Time Total Time Spent Total Time Spent (In Minutes): 40 MINS Total Time Includes: Examination of the Patient, Discharge Planning and Medication Reconciliation Discharge Plan Discharge Items Patient Disposition: Transfer Inpatient Rehab Fac Reason For Visit: RLE DVT Discharge Diagnosis: Right lower extremity acute DVT, chronic urinary retention due to BPH- indwelling Sanders catheter, complicated UTI Parkinson's disease hypertension Type 2 diabetes Condition on Discharge: Good Activity: Resume your previous activity Non-emergency contact: Primary Care Provider Call non-emergency contact if: you have any medication questions Follow-up/Referrals: PCP,NO [Primary Care Provider] - Diet: Carb Consistent or DM2 and Heart Healthy Addtl Attending Provider Instructions: Continue Eliquis 10 mg twice daily for 5 more days Then Eliquis 5 mg twice daily continued dose-for right lower extremity DVT Antibiotic: Ciprofloxacin 500 mg 1 tablet twice daily for 4 more days-complicated urinary tract infection Pending Studies at Discharge: No Stand-Alone Forms: My [facility] Skilled Items Patient informed of condition?: Yes DNR: No Discharge Level of Care: Acute rehab Communicable Disease: No Discharge Prognosis: Stable Lines: None Urinary Catheter: Yes Medications and DC Order Prescriptions: New ciprofloxacin HCl 500 mg Tablet 500 mg PO BID 4 Days Qty: 8 RF: 0 Eliquis 5 mg Tablet 10 mg PO UD 30 Days Qty: 60 RF: 0 Continued metformin 500 mg Tablet 500 mg PO DAILY RF: 0 polyethylene glycol 3350 17 gram Powder In Packet 17 g PO DAILY RF: 0 amlodipine 2.5 mg Tablet 2.5 mg PO DAILY RF: 0 aspirin 81 mg Tablet,Delayed Release (Dr/Ec) 81 mg PO DAILY RF: 0 tamsulosin 0.4 mg Capsule 0.4 mg PO DAILY RF: 0 docusate sodium 100 mg Capsule 100 mg PO BID RF: 0 carbidopa-levodopa 25-100 mg Tablet 1 tab PO TID RF: 0 Discharge Orders: Discharge Order (Routine); Ordered 09/03/19 Ordered By: Chantal Nielsen/Other Patient Handouts: Managing Diabetes: The A1C Test Admission Data Admit Date/Time: 09/01/19 17:19 Attending Provider: Chantal Carranza Admit Provider: Brittany Cueto Primary Care Provider: PCP,NO Other Providers: Brittany Cueto ; Rhiannon Sanchez ; [facility]
== END 2019-09-03 17:51 | DRG 300 ==
LOC: ED 13:08 → SUATTDRO 17:19 → 2W 17:19